=== PATIENT | male | born 1955 | race American Indian/Alaskan Native ===

== ENCOUNTER 2018-04-02 11:11 | Outpatient (CLI) | payer MEDICAID, SELFPAY ==
[2018-04-02 12:52] LABS: ALT 28 U/L (12-78); AST 17 U/L (15-37); Albumin 3.8 g/dL (3.4-5.0); Alkaline Phosphatase 58 U/L (46-116); Anion Gap 9.6 mmol/L (3-11); BUN 10 mg/dL (7-18); Bilirubin, Total 0.9 mg/dL (0.2-1.0); CO2 29.4 mmol/L (21.0-32.0); CREATININE 1.06 mg/dL (0.70-1.30); Calcium 9.3 mg/dL (8.5-10.1); Chloride 100 mmol/L (98-107); Cholesterol 300 mg/dL (50-200); Glucose 104 mg/dL (70-100); HDL Cholesterol 67 mg/dL (40-60); LDL CHOLESTEROL 206 mg/dL (<100); Potassium 4.4 mmol/L (3.5-5.1); Sodium 139 mmol/L (136-145); Total Protein 6.7 g/dL (6.4-8.2); Triglyceride 132 mg/dL (30-150)
== END 2018-04-02 11:12 ==
PROVIDERS: PCP Family Medicine; Visit Provider Family Medicine
DX: E78.5 Hyperlipidemia, unspecified (principal)
CPT/HCPCS: 36415; 80053; 80061; 83721

== ENCOUNTER 2018-04-10 13:55 | Outpatient (CLI) | payer MEDICAID, SELFPAY ==
--- NOTE | 2018-04-10 15:55 | DI.REPORT_ITS ---
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 CERVICAL RIB CERVICAL SPINE: There are endplate osteophytes projecting mainly anteriorly. There is slight disc space narrowing at C 6-7. There are facet degenerative changes. There is encroachment on the left of the C 6-7 neural foramen. No significant right neural foraminal encroachment. No cervical ribs are seen. The visualized portions of the lung apices are unremarkable. IMPRESSION: Degenerative changes causing neural foraminal narrowing on the left at C 6-7.
[2018-04-11 12:49] LABS: Lyme Ab w Rflx to Lyme Confirm Negative
[2018-04-11 23:35] LABS: Anaplasma phagocytophilum Negative (Negative); B. miyamotoi PCR Negative (Negative); Babesia divergens/MO-1 Negative (Negative); Babesia duncani Negative (Negative); Babesia microti Negative (Negative); Ehrlichia chaffeensis Negative (Negative); Ehrlichia ewingii/canis Negative (Negative); Ehrlichia muris eauclairensis Negative (Negative)
== END 2018-04-10 13:56 ==
PROVIDERS: PCP Family Medicine; Visit Provider Family Medicine
DX: M79.1 Myalgia (principal); G54.0 Brachial plexus disorders; M50.323 Other cervical disc degeneration at C6-C7 level
CPT/HCPCS: 36415; 72050; 86618; 87798

== ENCOUNTER 2019-04-02 09:24 | Outpatient (CLI) | payer MEDICAID, SELFPAY ==
[2019-04-02 10:50] LABS: Calculated LDL 99 mg/dL; Cholesterol 178 mg/dL (50-200); HDL Cholesterol 67 mg/dL (40-60); Triglyceride 62 mg/dL (30-150)
== END 2019-04-02 09:44 ==
PROVIDERS: PCP Family Medicine; Visit Provider Family Medicine
DX: E78.5 Hyperlipidemia, unspecified (principal)
CPT/HCPCS: 36415; 80061; 83721

== ENCOUNTER 2020-09-07 11:06 | Outpatient (CLI) | payer MEDICAID, SELFPAY ==
--- NOTE | 2020-09-07 11:00 | DI.RAD_ITS ---
EXAM: XR TIB/FIB RT CLINICAL HISTORY: Mid shaft tibial pain, stress frx?, rt leg pain, M79.604. TECHNIQUE: 2D digital imaging was performed. COMPARISON: No exams were available for comparison FINDINGS: BONES: No acute fracture is present. No bony destructive lesion is seen. Visualized portion of knee a nd ankle joints are unremarkable. No periosteal reaction is present. There is a well corticated oss eous density anterior to the tibial tuberosity which is chronic. SOFT TISSUE: Normal. IMPRESSION: Unremarkable radiographs of the right tibia and fibula. An MRI or bone scan may be considered for fur ther evaluation. DATA REPOSITORY: RADIATION DOSE DELIVERED:
== END 2020-09-07 11:26 ==
PROVIDERS: PCP Family Medicine; Visit Provider Family Medicine
DX: M79.604 Pain in right leg (principal)
CPT/HCPCS: 73590

== ENCOUNTER 2022-06-10 13:30 | Outpatient (CLI) | payer MEDICAID, SELFPAY ==
[2022-06-10 10:47] LABS: ALT 26 U/L (16-63); AST 24 U/L (15-37); Albumin 4.2 g/dL (3.4-5.0); Alkaline Phosphatase 97 U/L (46-116); Anion Gap 7.1 mmol/L (3-11); BUN 14 mg/dL (7-18); CO2 29.9 mmol/L (21.0-32.0); CREATININE 1.1 mg/dL (0.70-1.30); Calcium 10.3 mg/dL (8.5-10.1); Calculated LDL 112 mg/dL (<100); Chloride 101 mmol/L (98-107); Cholesterol 184 mg/dL (<200); Estimated GFR 74.96 (mL/min/1.73m2); Glucose 114 mg/dL (74-106); HDL Cholesterol 57 mg/dL (40-60); Potassium 4.3 mmol/L (3.5-5.1); Sodium 138 mmol/L (136-145); Total Protein 7.9 g/dL (6.4-8.2); Triglyceride 78 mg/dL (<150)
== END 2022-06-10 13:31 | disposition home or self-care (01) ==
PROVIDERS: PCP Family Medicine; Visit Provider Family Medicine
DX: E78.5 Hyperlipidemia, unspecified (principal)
CPT/HCPCS: 36415; 80053; 80061

== ENCOUNTER → 2024-01-01 13:47 | Outpatient (CLI) | payer MEDICARE, MEDICAID, SELFPAY ==
--- NOTE | 2024-01-01 09:42 | DI.RAD_ITS ---
Exam(s) XR CHEST 2V PA LATERAL EXAM: XR CHEST 2V PA LATERAL CLINICAL HISTORY: Some dyspnea, orthopnea, R06.01 TECHNIQUE: 2D digital imaging was performed of the chest. Two images were obtained. PA and lateral views were obtained. COMPARISON: No exams were available for comparison FINDINGS: MEDIASTINUM: Normal. HEART: Normal. PULMONARY VASCULATURE: Normal. LUNGS: Clear. PLEURAL SPACE: No pleural effusion or pneumothorax. BONE:Within normal limits for the patient's age. OTHER FINDINGS:Normal. IMPRESSION: No acute pulmonary findings. DATA REPOSITORY: RADIATION DOSE DELIVERED:
== END ==
PROVIDERS: PCP Family Medicine; Visit Provider Family Medicine
DX: R06.01 Orthopnea (principal)
CPT/HCPCS: 71046

== ENCOUNTER 2024-01-11 14:22 | Outpatient (CLI) | payer MEDICARE, MEDICAID, SELFPAY ==
[2024-01-11 14:36] LABS: Abs Immature Grans 0.04 10^3/uL (0.0-0.06); Absolute Basophil Count 0.03 10^3/uL (0.0-0.2); Absolute Eosinophil Count 0.06 10^3/uL (0.0-0.7); Absolute Lymphocyte Count 0.53 10^3/uL (1.2-3.4); Absolute Neutrophil Count 3.92 10^3/uL (1.2-6.7); Basophils % 0.6 %; Eosinophils % 1.1 %; HCT 39.7 % (40.0-50.0); HGB 13.2 g/dL (13.5-17.5); Immature Grans % 0.8 %; MCH 29.8 pg (27.0-33.0); MCHC 33.2 % (32.0-36.0); MCV 90 fL (80-95); MPV 8.9 fL (8.0-11.0); Monocytes % 13.3 %; Neutrophils % 74.2 %; Platelet Count 219 10^3/uL (130-400); RBC 4.43 10^6/uL (4.36-5.78); RDW 12.6 % (11.8-14.1); RDW-SD 41.8 fL; WBC 5.28 10^3/uL (4.4-10.8)
[2024-01-11 15:22] LABS: ALT 26 U/L (16-63); AST 16 U/L (15-37); Albumin 3.7 g/dL (3.4-5.0); Alkaline Phosphatase 115 U/L (46-116); Anion Gap 7.7 mmol/L (3-11); BUN 23 mg/dL (7-18); Bilirubin, Total 0.9 mg/dL (0.2-1.0); CO2 28.3 mmol/L (21.0-32.0); CREATININE 1.3 mg/dL (0.70-1.30); Calcium 9.5 mg/dL (8.5-10.1); Calculated LDL 91 mg/dL (<100); Chloride 103 mmol/L (98-107); Cholesterol 148 mg/dL (<200); Estimated GFR 60.59 (mL/min/1.73m2); Glucose 116 mg/dL (74-106); HDL Cholesterol 39 mg/dL (40-60); Potassium 4.3 mmol/L (3.5-5.1); Sodium 139 mmol/L (136-145); Total Protein 7.2 g/dL (6.4-8.2); Triglyceride 94 mg/dL (<150)
== END 2024-01-11 14:23 | disposition home or self-care (01) ==
LOC: LBO 14:23
PROVIDERS: PCP Family Medicine; Visit Provider Family Medicine
DX: R06.09 Other forms of dyspnea (principal); E78.5 Hyperlipidemia, unspecified
CPT/HCPCS: 36415; 80053; 80061; 85025

== ENCOUNTER → 2024-01-23 01:55 | Outpatient (CLI) | payer MEDICARE, MEDICAID, SELFPAY ==
--- NOTE | 2024-01-23 14:30 | DI.US_ITS ---
APPROVED REPORT EXAM: Comprehensive 2D, Doppler, and color-flow Echocardiogram Patient Location: Out-Patient Clinical Administrator: Donnie Pan RDCS (AE) Indications: Orthopnea and dyspnea on exertion Conclusion Normal left ventricular wall thickness and chamber size. Ejection fraction is 65%. Wall motion is n ormal Normal right ventricular size and function Both atria are normal in size There is no structural or hemodynamically significant valvular disease Estimated right ventricular systolic pressure is 21 mmHg Wall motion Left Ventricle The left ventricle is normal size. The left ventricular systolic function is normal. The left ventric ular ejection fraction is within the normal range. There is normal left ventricular wall thickness. T here is normal LV segmental wall motion. There is no ventricular septal defect visualized. LVEF is 65 %. Right Ventricle The right ventricle is normal size. The right ventricular systolic function is normal. Atria The left atrium size is normal. The right atrium size is normal. The interatrial septum is intact wit h no evidence for an atrial septal defect. Aortic Valve The aortic valve is normal in structure. Aortic valve is trileaflet. There is no aortic valvular sten osis. No aortic regurgitation is present. Mitral Valve The mitral valve is normal in structure. No evidence of mitral valve stenosis. There is no mitral juan carlos ve regurgitation noted. Tricuspid Valve The tricuspid valve is normal in structure. There is no tricuspid valve stenosis. Mild tricuspid regu rgitation. The RVSP is 20.6 mmHg. Pulmonic Valve The pulmonary valve is normal in structure. There is no pulmonic valvular stenosis. Mild pulmonic reg urgitation. Great Vessels The aortic root is normal in size. The ascending aorta is normal in size. Aortic arch is normal in ca liber. IVC is normal in size and collapses >50% with inspiration. Pericardium There is no pericardial effusion. 2D Dimensions IVSD d PLAX 0.73 cm M: 0.6-1.2 Ao Root d 2.84 cm M: 3.1 - 3.7 LVPW d PLAX 0.75 cm M: 0.6 - 1.2 Ao Asc Diam d 3.25 cm M: 2.6 - 3.4 LVID d PLAX 4.35 cm M: 4.2 - 5.8 LVDs 2.97 cm M: 2.5 - 4.0 LV EF Teichholz 59.8 % FS 31.59 % LV EDV (Teich) 85.2 mL LV ESV (Teich) 34.2 mL Stroke Vol Index (Teich) 31.07 M-Mode TAPSE 2.33 cm (M/F) >1.7 Auto EF LV EDV A4C 104.9 mL LV EDV A2C 103.5 mL LV EDV BP 104.9 mL LV ESV A4C 43.8 mL LV ESV A2C 43.5 mL LV ESV BP 43.1 mL LVEF(%) A4C 58.2 % LVEF(%) A2C 58.0 % LVEF(%) BP 58.9 % LV SV A4C 61.0 ml LV SV A2C 60.0 ml LV SV BP 61.8 ml LV CO A4C 5.3 L/min LV CO A2C 5.5 L/min LV CO BP 5.4 L/min HR A4C 86.75 BPM HR A2C 91.10 BPM LV EDV Index (BP) LA Volume LA Length A4C 3.9 cm LA Length A2C 3.9 cm LA Area A4C s 13.57 cm2 LA Area A2C s 9.09 cm2 LA Vol A4C A-L 39.67 mL LA Vol A2C A-L 18.05 mL LA Vol Biplane A-L 26.9 mL LA Vol/BSA A4C A-L LA Vol/BSA A2C A-L LA Vol/BSA BP A-L 16.4 mL/m2 LA Vol A4C MOD 34.2 mL LA Vol A2C MOD 17.6 mL LA Vol BP MOD 22.8 mL RA Volume RA Area A4C 13.8 cm2 RA ESV A4C (A-L) 39.6mL RA Vol/BSA A4C A-L RA Length A4C 4.1 cm RA ESV A4C (MOD) 35.7mL LV Diastology MV E' medial 0.068 (>0.07 m/s) MV E Vmax 0.60 (0.4-1.3 m/s) MV E/E' MED 8.84 (<14) MV A Vmax 0.75 (0.4-1.3 m/s) MV E' lateral 0.067 (>0.1 m/s) E/A Ratio 0.8 MV E/E' LAT 8.97 (<14) MV E' Average 0.067 m/s MV E/E'(average) 8.91 Aortic Valve AoV Vmax 1.34 m/s LVOT Vmax 0.91 m/s AoV Peak Grad 7.2 mmHg LVOT Peak Grad 3.3 mmHg AoV Area (Vmax) 1.67 cm2 LVOT VTI 0.187 m AoV VTI 0.269 m LVOT Mean Grad 2.0 mmHg AoV Mean Charles. 0.98 m/s LVOT SV 45.81 mL AoV Mean Grad 4.3 mmHg LVOT Diam s 1.75 cm AoV Area (VTI) 1.70 cm2 Velocity Ratio 0.68 Pulmonary Valve PV Vmax 0.91 (0.5-1.5 m/s) RVOT Vmax 0.78 m/s PV Peak Grad 3.3 mmHg RVOT Peak Gr. 2.4 mmHg PV Mean Charles 0.71 m/s RVOT VTI 0.131 m PV Mean Grad 2.2 mmHg RVOT Mean Gr. 1.5 mmHg Tricuspid Valve RA Pressure 3.00 mmHg TR Vmax 2.10 m/s TR Peak Grad 17.6 mmHg RVSP (TR) 20.6 mmHg
== END ==
PROVIDERS: PCP Family Medicine; Visit Provider Family Medicine
DX: R06.09 Other forms of dyspnea (principal); R06.01 Orthopnea
CPT/HCPCS: 93306

== ENCOUNTER 2024-02-05 06:37 | Outpatient (CLI) | payer MEDICARE, MEDICAID, SELFPAY ==
[2024-02-05] MEDS: Levalbuterol HFA 15 GM INH 4 PUFF IH (08:59)
[2024-02-05] MEDS: Inhaler, Assist Device 1 EACH MC (08:59)
--- NOTE | 2024-02-05 12:59 | W.PFT ---
Date of service: 02/05/24 Time of Service: 08:08 Pulmonary Function Test Result Indications: Dyspnea Interpretation Spirometry: There is no airflow limitation. No bronchodilator response. Inspiratory loop blunting. Lung Volumes: Normal souleymane ng volumes Diffusion Capacity: Normal diffusion Airway Pressure: Normal airways resistance Impression Normal pulmonary function testing, but there is inspiratory loop blunting on flow volume loop which may represent vocal cord dysfunction in the appropriate clinical setting. Clinical Correlation therefore is recommended.
== END 2024-02-05 06:38 | disposition home or self-care (01) ==
PROVIDERS: PCP Family Medicine; Visit Provider Family Medicine
DX: R06.00 Dyspnea, unspecified (principal)
CPT/HCPCS: 94060; 94726; 94729

== ENCOUNTER 2024-06-04 13:13 | Outpatient (CLI) | payer MEDICARE, MEDICAID, SELFPAY ==
[2024-06-04 10:50] LABS: Abs Immature Grans 0.06 10^3/uL (0.0-0.06); Absolute Basophil Count 0.03 10^3/uL (0.0-0.2); Absolute Eosinophil Count 0.01 10^3/uL (0.0-0.7); Absolute Lymphocyte Count 0.35 10^3/uL (1.2-3.4); Absolute Monocyte Count 0.71 10^3/uL (0.1-0.8); Absolute Neutrophil Count 4.68 10^3/uL (1.2-6.7); Basophils % 0.5 %; Eosinophils % 0.2 %; HCT 30.5 % (40.0-50.0); HGB 9.8 g/dL (13.5-17.5); MCH 28.2 pg (27.0-33.0); MCHC 32.1 % (32.0-36.0); MCV 88 fL (80-95); MPV 9.4 fL (8.0-11.0); Monocytes % 12.2 %; Neutrophils % 80.1 %; Platelet Count 173 10^3/uL (130-400); RBC 3.47 10^6/uL (4.36-5.78); RDW 13.9 % (11.8-14.1); RDW-SD 44.1 fL; WBC 5.84 10^3/uL (4.4-10.8)
[2024-06-04 12:08] LABS: ALT 39 U/L (16-63); AST 41 U/L (15-37); Albumin 2.8 g/dL (3.4-5.0); Alkaline Phosphatase 83 U/L (46-116); Anion Gap 10.3 mmol/L (3-11); BUN 22 mg/dL (7-18); Bilirubin, Total 1.03 mg/dL (0.2-1.0); CO2 25.7 mmol/L (21.0-32.0); CREATININE 1.4 mg/dL (0.70-1.30); Calcium 9.6 mg/dL (8.5-10.1); Chloride 100 mmol/L (98-107); Estimated GFR 55.43 (mL/min/1.73m2); Glucose 136 mg/dL (74-106); Potassium 4.5 mmol/L (3.5-5.1); Sodium 136 mmol/L (136-145); Total Protein 7.4 g/dL (6.4-8.2)
[2024-06-05 11:32] LABS: Lyme Ab w Rflx to Lyme Confirm Negative (Negative)
[2024-06-06 22:49] LABS: Anaplasma phagocytophilum Negative (Negative); B. miyamotoi PCR Negative (Negative); Babesia divergens/MO-1 Negative (Negative); Babesia duncani Negative (Negative); Babesia microti Negative (Negative); Ehrlichia chaffeensis Negative (Negative); Ehrlichia ewingii/canis Negative (Negative); Ehrlichia muris eauclairensis Negative (Negative)
== END 2024-06-04 13:14 | disposition home or self-care (01) ==
LOC: LBO 13:14
PROVIDERS: PCP Family Medicine; Visit Provider Family Medicine
DX: R50.9 Fever, unspecified (principal); R43.8 Other disturbances of smell and taste; R63.0 Anorexia
CPT/HCPCS: 36415; 80053; 87798; 85025; 86618